=== PATIENT | female | born 1935 | race Caucasian/White ===

== ENCOUNTER 2017-04-15 07:13 | Emergency (ER) | payer MEDICAID, OTHER ==
[~2017-04-15] VITALS: Ht 170.2 cm; Wt 71.1 kg
[~2017-04-15 07:13] MED LIST: ALPR-138 PO; LISI-363 PO; METF500 PO; NORV10TA PO; PAXI20TA26 PO; PRAV40TA PO
[2017-04-15 07:19] VITALS: BP 141/63; PULSE 93; RESP 18; TEMP 98.5; O2SAT 95
[2017-04-15] MEDS ORDERED: SERT-132 PO (07:40)
[2017-04-15] MEDS ORDERED: ATOR40TA16 PO (07:40)
[2017-04-15] MEDS ORDERED: AMLO10TA2 PO (07:40)
[2017-04-15] MEDS ORDERED: FOSA70TA PO (07:40)
[2017-04-15] MEDS ORDERED: METF500T PO (07:40)
[2017-04-15] MEDS ORDERED: LISI-515 PO (07:40)
[2017-04-15 07:42] VITALS: BP 142/66; PULSE 87; RESP 18; O2SAT 98
[2017-04-15] MEDS ORDERED: TRAM50TA PO (08:38)
--- NOTE | 2017-04-15 08:41 | PD ---
HPI Chief Complaint: Cold / Flu Symptoms Time Seen by Provider: 07:36 Travel History International Travel<30 days: No Contact w/Intl Traveler<30days: No Traveled to known affect area: No History of Present Illness HPI The patient was seen and examined in the presence of the nurse. This patient complains of flulike illness. Her chief complaint is myalgias. She has some runny nose and congestion. Denies fever or shortness of breath. Symptoms severity is mild PFSH Past Medical History Arthritis: Yes (LEFT KNEE) Autoimmune Disease: No Depression: Yes Heart Rhythm Problems: No Cancer: No Cardiovascular Problems: Yes High Cholesterol: Yes Chest Pain: No Congestive Heart Failure: No Diabetes: Yes Patient Takes Glucophage: Yes Diminished Hearing: No Genitourinary: No Hypertension: Yes Immune Disorder: No Implanted Vascular Access Dvce: Yes Musculoskeletal: Yes Neurologic: No Psychiatric: No Reproductive: No Respiratory: No Immunizations Current: Yes Influenza Vaccination: No ?: Not Menopausal: Yes Past Surgical History Abdominal Surgery: No AICD: No Arteriovenous Shunt: No Cardiac Surgery: No Ear Surgery: No Endocrine Surgery: No Eye Surgery: Yes (CATARACT REMOVED RIGHT EYE) Genitourinary Surgery: No Gynecologic Surgery: Yes (HYSTERECTOMY) Hysterectomy: Yes Insulin Pump: No Joint Replacement: Yes (SOME HARDWARE LEFT KNEE) Oral Surgery: No Pacemaker: No Thoracic Surgery: No Other Surgery: Yes Social History Alcohol Use: No Tobacco Use: No Substance Use: No Allergies-Medications (Allergen,Severity, Reaction): Coded Allergies: No Known Allergies (Verified Adverse Reaction, Unknown, 04/15/17) Reported Meds & Prescriptions Reported Meds & Active Scripts Active Tramadol (Tramadol HCl) 50 Mg Tab 50 Mg PO Q6H PRN Reported Amlodipine (Amlodipine Besylate) 10 Mg Tab 10 Mg PO DAILY Sertraline (Sertraline HCl) 50 Mg Tab 50 Mg PO DAILY Atorvastatin (Atorvastatin Calcium) 40 Mg Tab 40 Mg PO HS Lisinopril 20 Mg Tab 20 Mg PO BID Fosamax (Alendronate Sodium) 70 Mg Tab 70 Mg PO Q7D Metformin (Metformin HCl) 500 Mg Tab 500 Mg PO BIDPC Review of Systems General / Constitutional: No: Fever HENT: No: Headaches Cardiovascular: No: Chest Pain or Discomfort Musculoskeletal: Positive: Myalgias Physical Exam Narrative GENERAL: Well-nourished, well-developed patient in no apparent distress. SKIN: Focused skin assessment reveals no rash and nodules. Skin is Warm and dry. HEAD: Atraumatic. Normocephalic. EYES: Pupils equal and round. No scleral icterus. No injection or drainage. ENT: No nasal bleeding or discharge. Mucous membranes pink and moist. NECK: Trachea midline. No JVD. CARDIOVASCULAR: Regular rate and rhythm. No murmur appreciated. RESPIRATORY: No accessory muscle use. Clear to auscultation. Breath sounds equal bilaterally. GASTROINTESTINAL: Abdomen soft, non-tender, nondistended. Hepatic and splenic margins not palpable. MUSCULOSKELETAL: No obvious deformities. No clubbing. No cyanosis. No edema. NEUROLOGICAL: Awake and alert. No obvious cranial nerve deficits. Motor grossly within normal limits. Normal speech. PSYCHIATRIC: Appropriate mood and affect; insight and judgment normal. Data Data Last Documented VS Vital Signs Date Time Temp Pulse Resp B/P (MAP) Pulse Ox O2 Delivery O2 Flow Rate FiO2 04/15/17 07:42 87 18 142/66 (91) 98 Room Air 04/15/17 07:19 98.5 MDM Medical Decision Making Medical Screen Exam Complete: Yes Emergency Medical Condition: Yes Medical Record Reviewed: Yes Differential Diagnosis Flu syndrome, myalgia, URI Narrative Course I have reviewed the patient's electronic medical record. Presentation is most consistent with an acute viral syndrome. He wants something stronger than [id number] for her myalgias I wrote her a dozen tramadol Supportive care discussed Diagnosis Primary Impression: Myalgia Additional Impression: Acute viral syndrome Additional Instructions: The patient was advised to follow up with their physician and return if they worsen. The patient was warned about potential sedation for the medications they will receive on prescription. Med/Other Pt SpecificInfo: Prescription(s) given Scripts Tramadol (Tramadol) 50 Mg Tab 50 MG PO Q6H Y for PAIN, #12 TAB 0 Refills Prov: James Mckenna MD 04/15/17 Disposition: 01 DISCHARGE HOME Condition: Stable James Mckenna MD Apr 15, 2017 08:41
== END 2017-04-15 08:55 | disposition home or self-care (01) ==
LOC: PHED 07:13
DX: M79.1 Myalgia (principal); B34.9 Viral infection, unspecified; M17.12 Unilateral primary osteoarthritis, left knee; E78.00 Pure hypercholesterolemia, unspecified; E11.9 Type 2 diabetes mellitus without complications; I10 Essential (primary) hypertension
CPT/HCPCS: 99283